=== PATIENT | female | born 1950 | race Caucasian/White ===

== ENCOUNTER → 2016-04-24 | Outpatient (CLI) | payer OTHER ==
--- NOTE | 2016-04-24 09:03 | MA ---
Screening Digital Mammogram Clinical Indications: Routine screening. Technique: Standard cephalocaudal and mediolateral oblique projections are obtained. This examinati on is processed by the [employer] computer aided detection system. Comparison: January 2015, January 2014, November 2012 and October 2011 Breast density: B; There are scattered fibroglandular densities. Findings: CAD was reviewed. No suspicious findings are identified. Impression: Negative mammogram. . BI-RADS 1. Recommendation: Routine screening is recommended in one year. [facility] will send a result letter to the patient. Negative mammography should not preclude additional workup of a clinically suspicious finding. The patient's information is entered into a reminder system with a target due date for her next mammo gram.
== END ==
LOC: FIMAGING 08:20
DX: Z12.31 Encounter for screening mammogram for malignant neoplasm of breast (principal)
CPT/HCPCS: G0202

== ENCOUNTER → 2016-07-08 | Outpatient (CLI) | payer OTHER | LOC: CIMAGING 16:53 | PROVIDERS: ATTEND Family Medicine | DX: R22.1 Localized swelling, mass and lump, neck (principal) | CPT/HCPCS: 76536-PO ==

== ENCOUNTER 2016-09-04 09:28 | Observation (INO) | payer MEDICAID, OTHER ==
[2016-09-04] MEDS ORDERED: LIDO/EPI 1% **Not for Epidural 20 ML MDV ONE (09:37)
[2016-09-04] MEDS ORDERED: LIDOCAINE 1% 2 ML INJ ONE (10:08)
[2016-09-04] MEDS ORDERED: MIDAZOLAM 2 MG/2 ML VIAL ONE (10:19)
[2016-09-04] MEDS ORDERED: fentaNYL 100 MCG/2 ML INJ ONE ×3 (10:25→13:21)
[2016-09-04] MEDS ORDERED: OXYCODONE/APAP 5/325 TAB PO PRN (10:25)
[2016-09-04] MEDS ORDERED: DEXAMETHASONE 10 MG/ML VIAL IV ONE (10:30)
[2016-09-04] MEDS ORDERED: D5W 1/2 NS W/ 20 KCl/L 1,000 ML IV SCH (10:30)
[2016-09-04] MEDS ORDERED: LR 1,000 ML IV ONE (10:31)
[2016-09-04] MEDS ORDERED: LIDOCAINE 1% 5 ML SDV ID PRN (10:31)
[2016-09-04 13:47] LABS: IONIZED CALCIUM 1.16 MMOL/L (1.12-1.30)
--- NOTE | 2016-09-04 13:56 | GOP ---
[f rep st] OPERATIVE REPORT DATE OF OPERATION: 09/04/2016 SURGEON: Mamadou Campbell MD SUPERVISOR BELT AND LINK ASSEMBLY: Epi Shankar. ANESTHESIA: General. PREOPERATIVE DIAGNOSIS: 1. Right thyroid mass suspicious for cancer. 2. Left level 5 neck mass, with fine-needle aspiration suggestive for cancer. POSTOPERATIVE DIAGNOSIS: 1. Right thyroid mass. 2. Left neck mass. Frozen section suggestive of benign tumor. PROCEDURE PERFORMED: 1. Right thyroid lobectomy. 2. Excision of deep left neck mass. 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 The recurrent laryngeal nerve was identified, as were the parathyroid glands on the right side. Nodules in the thyroid gland were deep and did not grossly extended to the thyroid capsule. There were no palpable or visibly abnormal lymph nodes. In the right central neck. SPECIMENS: Right thyroid lobe and left neck mass. ESTIMATED BLOOD LOSS: Less than 75 cc. INDICATIONS: The patient is a 66-year-old woman with a left level 5 neck mass, with a positive FNA for cancer, and a right thyroid nodule with FNA suspicious for cancer. Her preoperative PET scan showed positive likelihood of malignancy in the left neck mass alone and nowhere else within the areas studied. DESCRIPTION OF PROCEDURE: Patient was taken the OR and positively identified, placed on monitors, and general anesthesia was induced. The patient was then prepped and draped in normal sterile fashion. Incision was marked overlying the anterior neck skin crease, and infiltrated with 5 cc of 1% lidocaine with 1: 100,000 epinephrine. The skin was then sharply incised. Dissection carried down through the platysma. Superior and inferior subplatysmal flaps were then raised and secured with 2-0 silk suture. The sternocleidomastoid muscle was delineated. I was able to move the level 5 neck mass, which was seen to be just deep to or possibly within the substance of the very inferior portion of the sternocleidomastoid muscle. I dissected vertically to the sternocleidomastoid muscle fibers, and exposed the mass. I then followed out to its border superiorly and inferiorly. There was no evidence of it growing from off or within a nerve or any other structures. There was no significant blood supply to the mass itself. Small blood vessels were simply cauterized with bipolar cautery and divided. The mass was then delivered from the neck. Palpation did not reveal any other abnormalities in the neck. Frozen section was suggestive of a benign schwannoma. Attention was now turned to the right thyroid lobectomy/completion thyroidectomy. The strap muscles were divided in the midline and elevated off the right thyroid lobe. The superior vascular pedicle was isolated, clamped, cut, and ligated with 2-0 silk stick tie. The thyroid gland was then rotated medially. I identified the recurrent laryngeal nerve and the parathyroid glands. The middle thyroid vein was ligated and divided. The inferior vascular pedicle was ligated and divided in the same fashion. The thyroid gland was then rotated medially, following the capsule of the thyroid gland itself. Capellan ligament was then divided, tying off and cauterizing the vessels as needed in the region. The thyroid was rotated off the trachea and delivered from the wound (the patient had undergone left thyroid lobectomy 17 years ago). The wound was then irrigated with sterile saline solution. Hemostasis was assured. A 10-[place] round silicone drain was then placed through a separate stab incision and secured with a drain stitch. The wound was then closed with interrupted Vicryl to the strap muscles, Monocryl to the platysma and subcutaneous tissues, and a running Prolene suture through the skin, followed by pressure dressing. The case was then terminated. The anesthetic discontinued. The patient was taken to the postop care unit in good condition. She tolerated the procedure well. COMPLICATIONS: None. /[id number]/MODL MTDD
[2016-09-04] MEDS ORDERED: HYDROmorphONE/DILAUDID 1 MG/ML SYR ONE (13:57)
[2016-09-04] MEDS ORDERED: BACITRACIN ZINC 14.2 GM OINTTUBE TP ONE (15:32)
[2016-09-04] MEDS: ceFAZolin 2 GM/DEXTROSE 100 ML IV SCH ×2 (15:43→21:55)
--- NOTE | 2016-09-04 18:20 | SOAPPROG ---
SOAP Progress Note Assessment/Plan: Assessment:Pt doing well. no signs of low calcium. Plan: Obs overnight. Check Calcium in the morning. Likely discharge in the morning. 09/04/16 18:18 Subjective: Pt feeling good. Objective: Vital Signs Temp Pulse Resp BP Pulse Ox 36.8 C 92 18 157/95 H 99 09/04/16 17:30 09/04/16 17:30 09/04/16 17:30 09/04/16 17:30 09/04/16 17:30 09/03/16 09/04/16 09/05/16 05:59 05:59 05:59 Intake Total 1000 Output Total 15 Balance 985 Pt voice is normal. Neck flat. ICD10 Worksheet Patient Problems: Problems Problem Status Onset Thyroid adenoma Acute - ICD10 Problem Qualifiers (1) Thyroid adenoma
[2016-09-04 22:45] LABS: IONIZED CALCIUM 1.04 MMOL/L (1.12-1.30)
[2016-09-05] MEDS: ceFAZolin 2 GM/DEXTROSE 100 ML IV SCH (05:40)
[2016-09-05 05:46] LABS: IONIZED CALCIUM 1.11 MMOL/L (1.12-1.30)
[2016-09-05 07:53] VITALS: BP 136/75; PULSE 71; RESP 18; TEMP 97.9; O2SAT 98
--- NOTE | 2016-09-05 09:56 | SOAPPROG ---
SOAP Progress Note Assessment/Plan: pt s/p thyroidecotmy. Doing well. No hoarseness. No numbness. mild pain o:- dressing and drain removed. Dressing replaced. CA- 1.11 Plan:Pt s/p thyroidectomy. doing well. Take 2 tums tid on discharge. Discussed post op care. F/u next week. 09/05/16 09:55 Objective: Vital Signs Temp Pulse Resp BP Pulse Ox 36.6 C 71 18 136/75 H 98 09/05/16 07:52 09/05/16 07:52 09/05/16 07:52 09/05/16 07:52 09/05/16 07:52 09/04/16 09/05/16 09/06/16 05:59 05:59 05:59 Intake Total 1375 Output Total 585 Balance 790 ICD10 Worksheet Patient Problems: Problems Problem Status Onset Thyroid adenoma Acute
== END 2016-09-05 11:37 | disposition home or self-care (01) ==
LOC: F3E 09:28 → INTOOBSV 09:28 → PREOBSVTOIN 10:32 → F3E 14:38
PROVIDERS: ADMIT Otolaryngology; ATTEND Otolaryngology
PROC: 0KB30ZX Excision of Left Neck Muscle, Open Approach, Diagnostic (ICD-10-PCS; principal; 2016-09-04 10:30)
PROC: 0GTH0ZZ Resection of Right Thyroid Gland Lobe, Open Approach (ICD-10-PCS; principal; 2016-09-04 10:30)
DX: C49.0 Malignant neoplasm of connective and soft tissue of head, face and neck (principal); E04.2 Nontoxic multinodular goiter
CPT/HCPCS: 21554; 60220; J0690; J1170; J2250; J3010

== ENCOUNTER 2016-09-24 14:33 | Observation (INO) | payer OTHER ==
--- NOTE | 2016-09-24 09:31 | PDANEPAE ---
ANE Past Medical History - Cardiovascular History Hx Hypertension: No Hx Arrhythmias: No Hx Chest Pain: No Hx Coronary Artery / Peripheral Vascular Disease: No Hx CHF / Valvular Disease: No Hx Palpitations: No - Pulmonary History Hx COPD: No Hx Asthma/Reactive Airway Disease: No Hx Recent Upper Respiratory Infection: No Hx Oxygen in Use at Home: No - Neurologic History Hx Cerebrovascular Accident: No Hx Seizures: No Hx Dementia: No - Endocrine History Hx Diabetes: No - Renal History Hx Renal Disorders: No - Liver History Hx Hepatic Disorders: No - Neurological & Psychiatric Hx Hx Neurological and Psychiatric Disorders: No - Cancer History Hx Cancer: Yes - Congenital Disorder History Hx Congenital Disorders: No - GI History Hx Gastrointestinal Disorders: No - Chronic Pain History Chronic Pain: No ANE Review of Systems - Exercise capacity METS (RN): 4 METS ANE Patient History - Allergies Allergies/Adverse Reactions: morphine Allergy (Verified 09/23/16 17:46) Other-Enter Comments - Home Medications Home Medications: Levothyroxine 09/23/16 [Last Taken Unknown] - Smoking Hx Smoking Status: Former smoker ANE Labs/Vital Signs - Vital Signs Height: 163.83 cm Weight: 63.503 kg
[~2016-09-24 14:33] MED LIST: DEXAMETHASONE 10 MG/ML VIAL IVP ONE; LIDO/EPI 1% **Not for Epidural 20 ML MDV ONE; ceFAZolin 2 GM/DEXTROSE 100 ML IV ONE
[2016-09-24] MEDS ORDERED: LIDOCAINE 1% 2 ML INJ ONE (14:54)
[2016-09-24] MEDS ORDERED: LR 1,000 ML IV ONE (15:16)
[2016-09-24] MEDS ORDERED: LIDOCAINE 1% 2 ML INJ ID PRN (15:16)
--- NOTE | 2016-09-24 15:47 | PDANEPAE ---
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 here for L radical neck dissection ANE Past Medical History - Cardiovascular History Hx Hypertension: No Hx Arrhythmias: No Hx Chest Pain: No Hx Coronary Artery / Peripheral Vascular Disease: No Hx CHF / Valvular Disease: No Hx Palpitations: No - Pulmonary History Hx COPD: No Hx Asthma/Reactive Airway Disease: No Hx Recent Upper Respiratory Infection: No Hx Oxygen in Use at Home: No Hx Sleep Apnea: No Sleep Apnea Screening Result - Last Documented: Negative Pulmonary History Comment: quit 1993 - Neurologic History Hx Cerebrovascular Accident: No Hx Seizures: No Hx Dementia: No - Endocrine History Hx Diabetes: No Endocrine History Comment: on thyroid Rx - Renal History Hx Renal Disorders: No - Liver History Hx Hepatic Disorders: No - Neurological & Psychiatric Hx Hx Neurological and Psychiatric Disorders: No - Cancer History Hx Cancer: Yes Cancer History Comment: CA in neck mass-" on muscle" - Congenital Disorder History Hx Congenital Disorders: No - GI History Hx Gastrointestinal Disorders: No - Chronic Pain History Chronic Pain: No - Surgical History Prior Surgeries: Thyroidectomy, exc deep L neck mass 09-04-16. colon polyectomy . partial thyroidectomy 1999 ANE Review of Systems - Exercise capacity METS (RN): 4 METS ANE Patient History - Allergies Allergies/Adverse Reactions: morphine Allergy (Verified 09/23/16 17:46) Other-Enter Comments - Home Medications Home medications: home medication list seen and reviewed Home Medications: Levothyroxine 09/23/16 [Last Taken 09/24/16] - NPO status NPO Since - Liquids (Date): 09/24/16 NPO Since - Liquids (Time): 13:00 NPO Since - Solids (Date): 09/24/16 NPO Since - Solids (Time): 06:00 - Anes Hx Anes Hx: no prior problems - Smoking Hx Smoking Status: Former smoker - Alcohol Use Alcohol Use: Occasionally - Family Anes Hx Family Anes Hx: none ANE Labs/Vital Signs - Vital Signs Blood Pressure: 164/96 Heart Rate: 70 Respiratory Rate: 14 O2 Sat (%): 99 Height: 163.83 cm Weight: 63.503 kg ANE Physical Exam - Airway Neck exam: decreased ROM Mallampati Score: Class 2 Mouth exam: normal dental/mouth exam - Pulmonary Pulmonary: no respiratory distress, clear to auscultation - Cardiovascular Cardiovascular: regular rate and rhythym, no murmur, rub, or gallop - ASA Status ASA Status: III ANE Anesthesia Plan Anesthesia Plan: general endotracheal anesthesia Lines/Monitors: arterial line
[2016-09-24] MEDS ORDERED: MIDAZOLAM 2 MG/2 ML VIAL IVP ONE (15:50)
[2016-09-24] MEDS ORDERED: fentaNYL 100 MCG/2 ML INJ ONE (15:55)
[2016-09-24] MEDS ORDERED: PROPOFOL 200 MG/20 ML VIAL ONE ×2 (15:55)
[2016-09-24] MEDS ORDERED: ROCURONIUM 50 MG/5 ML VIAL ONE (15:58)
[2016-09-24] MEDS ORDERED: LIDOCAINE 2% 5 ML SDV ONE (15:58)
[2016-09-24] MEDS ORDERED: DEXAMETHASONE 10 MG/ML VIAL IVP ONE (16:00)
[2016-09-24] MEDS ORDERED: ceFAZolin 2 GM/DEXTROSE 100 ML IV ONE (16:00)
[2016-09-24] MEDS ORDERED: OXYCODONE/APAP 5/325 TAB PO PRN ×2 (16:12→18:38)
--- NOTE | 2016-09-24 16:13 | PDHPUP ---
History & Physical Update H&P update statement: This history and physical update is based on an assessment of the patient which was completed after admission or registration (within 24 hours), but prior to the surgery/procedure.
[2016-09-24] MEDS ORDERED: LIDO/EPI 1% **for epidural** 30 ML SDV ONE (16:16)
[2016-09-24] MEDS ORDERED: LIDO/EPI 1% **Not for Epidural 20 ML MDV ONE (16:17)
[2016-09-24] MEDS ORDERED: D5W 1/2 NS 1,000 ML IV SCH (16:30)
[2016-09-24] MEDS ORDERED: HYDROmorphONE/DILAUDID 2 MG/ML INJ ONE (17:03)
[2016-09-24] MEDS ORDERED: DEXAMETHASONE 4 MG/ML VIAL ONE (17:35)
[2016-09-24] MEDS ORDERED: ONDANSETRON 4 MG/2 ML VIAL ONE (17:36)
[2016-09-24] MEDS ORDERED: fentaNYL 100 MCG/2 ML INJ IVP PRN (18:38)
[2016-09-24] MEDS ORDERED: NALOXONE HCL 0.4 MG/ML INJ IVP PRN (18:38)
[2016-09-24] MEDS ORDERED: ACETAMINOPHEN 500 MG TAB PO PRN (18:38)
[2016-09-24] MEDS ORDERED: HYDROmorphONE/DILAUDID 1 MG/ML SYR IVP PRN (18:38)
[2016-09-24] MEDS ORDERED: ONDANSETRON 4 MG/2 ML VIAL IVP PRN (18:38)
[2016-09-24] MEDS ORDERED: PROMETHAZINE HCL 25 MG/ML INJ IVP PRN (18:38)
--- NOTE | 2016-09-24 19:27 | POSTANESTH ---
Post Anesthetic Evaluation Cardiovascular Status: Normal, Stable, Similar to Pre-Op Cond Respiratory Status: Normal, Stable, Similar to Pre-op Cond. Level of Consciousness/Mental Status: Can Participate in Eval, Alert and Oriented Pain Control: Adequate, Prn Tx Ordered Nausea/Vomiting Control: Adequate, Prn Tx Ordered Complications Possibly Related to Anesthesia: None Noted
--- NOTE | 2016-09-24 19:41 | POSTOPPROG ---
Post Op Note Date of Operation: 09/24/16 Surgeon: Mamadou Campbell Zinc Miner Blasting: Prasanth Shankar Anesthesiologist: Marcela Anesthesia: GET(General Endotracheal) Pre-op Diagnosis: left neck sarcoma Post-op Diagnosis: left neck sarcoma Procedure: Left neck modified radical neck dissection Inf/Abcess present in the surg proc area at time of surgery?: No Depth: Organ Space EBL: 50-100 Complications: none Drains: Adolph Mendoza (10 FR) Specimen(s): Left neck contents containing the SCM, internal jugular vein, external jugular vein, lymph node levels 2b,3,4,5
[2016-09-24] MEDS: ACETAMINOPHEN 500 MG TAB PO PRN (20:19)
[2016-09-24] MEDS: ceFAZolin 2 GM/DEXTROSE 100 ML IV SCH (23:24)
[2016-09-25] MEDS: ACETAMINOPHEN 500 MG TAB PO PRN (03:34)
[2016-09-25] MEDS: ceFAZolin 2 GM/DEXTROSE 100 ML IV SCH (05:22)
[2016-09-25] MEDS ORDERED: LEVOTHYROXINE 100 MCG TAB PO SCH (06:00)
--- NOTE | 2016-09-25 06:33 | GOP ---
[f rep st] OPERATIVE REPORT DATE OF OPERATION: 09/24/2016 SURGEON: Mamadou Campbell MD KEYING MACHINE OPERATOR: Rylan Shankar MD. ANESTHESIA: General. 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 PROCEDURE PERFORMED: Left modified radical neck dissection. FINDINGS: The accessary nerve, vagus nerve, and phrenic nerve were all identified and preserved. The sternocleidomastoid muscle and internal jugular vein and external jugular vein were all sacrificed. SPECIMENS: Left neck contents containing lymph node levels 2B, 3, 4, and 5. ESTIMATED BLOOD LOSS: 100 mL. 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 She presents for modified radical neck dissection in hopes of improving her chance of cure. DESCRIPTION OF PROCEDURE: Patient was taken to the operating room and positively identified, placed on monitors, and general endotracheal anesthesia was induced. The table was then turned. The patient was positioned with a shoulder roll. She was then prepped and draped in the normal fashion. Dr. Shankar was scrubbed in and actively involved in the surgery throughout the entire 2 hours of the operation. His assistance was critical for the safe and expeditious completion of the case. An incision was marked out along the neck including her recent incision line from her completion right thyroidectomy and excisional biopsy of the left neck mass. This was extended laterally following a skin crease in the neck. This was infiltrated with 8 cc of 1% lidocaine with 1:100,000 epinephrine. The skin was then sharply incised. Dissection was then carried down to the platysma. Superior and inferior subplatysmal flaps were then raised and secured with 2-0 silk suture. The posterior border of the sternocleidomastoid muscle was identified. Dissection was then carried down through the fatty tissue and the accessary nerve was identified. I then dissected down along the accessary nerve carefully until I was able to locate where it entered the anterior aspect of the trapezius muscle. Dissection was then swept up superiorly, following the nerve through the sternocleidomastoid muscle, dividing the muscle lateral to the nerve and then carefully dividing it inferior to the nerve to sweeping inferiorly. The external and internal jugular veins were clamped, cut and ligated with 2-0 silk stick ties. Dissection was then carried anteriorly following along the inferior aspect of the submandibular gland. Divided the submandibular fascia to try and minimize any potential risk to the marginal mandibular branch of the facial nerve. Of note, we did use the [place] nerve stimulator to help us identify both the accessary nerve and the marginal branch of the facial nerve. At this point, the dissection was swept down along the anterior border just lateral to the larynx. The carotid artery was identified, dissection was carried along the anterior aspect of the carotid artery. The vagus nerve was identified and preserved. The dissection was then swept down to the level of the sternal notch and clavicle. At this point, the inferior and border of the dissection was delineated. The internal jugular vein was crossclamped and ligated with a 2 -0 silk stick tie. As the tissue was swept laterally, we started using hemoclips in this area on any small vessels and the soft tissue to decrease inadvertent potential injury to the thoracic duct. The thyrocervical trunk was identified. The thyroid branch was ligated with 3-0 silk. The transverse cervical artery was preserved. The lymphatic tissue swept was swept back following the deep cervical fascia. I could identify the phrenic nerve deep to the fascia on the anterior border of the scalene musculature as well as the brachial plexus. As the lymphatic tissue was swept back posteriorly, taking out level 5, the cervical rootlets were divided, leaving ample distance between them and the phrenic nerve to decrease potential inadvertent injury to the phrenic nerve. The final fascial attachments were divided along the anterior border of the trapezius muscle, again, with care being taken to avoid inadvertent injury to the accessary nerve. The specimen was then oriented for the pathologist and sent en bloc with a suture at the superior-inferior border. The wound was then irrigated with sterile saline solution and hemostasis was assured. A 10-[place] flat WHIT drain was placed through a separate stab incision and secured with a drain stitch. The wound was then closed with interrupted 3-0 Vicryl, 4-0 Monocryl and 4-0 Prolene suture. A dressing was placed and the case was terminated, and the patient was taken to the postop care unit in good condition having tolerated the procedure well. COMPLICATIONS: None. DRAINS: A 10-[place] flat WHIT drain was placed at the end of the procedure. /[id number]/MODL MTDD
[2016-09-25 08:36] VITALS: BP 144/85; PULSE 72; RESP 16; TEMP 98.6; O2SAT 95
--- NOTE | 2016-09-25 10:00 | SOAPPROG ---
SOAP Progress Note Assessment/Plan: Assessment: Pt doing remarkably well. She rates her pain as a 2/10. She may be discharged with the WHIT drain after drain teaching by the RN. Plan: D/C home Followup set for tomorrow with me at 4:45 She does not require any pain meds other than tylenol. She will take keflex till the drain is removed. 09/25/16 09:56 Subjective: Pt feels good, gaurang PO, and wants to go home. Objective: Vital Signs Temp Pulse Resp BP Pulse Ox 37.0 C 72 16 144/85 H 95 09/25/16 08:00 09/25/16 08:00 09/25/16 08:00 09/25/16 08:00 09/25/16 08:00 09/24/16 09/25/16 09/26/16 05:59 05:59 05:59 Intake Total 500 Output Total 380 Balance 120 Neck flat, drainage is sero-sanguinous. Voice clear. no sign of infection ICD10 Worksheet Patient Problems: Problems Problem Status Onset Sarcoma Acute Thyroid adenoma Acute
== END 2016-09-25 10:53 | disposition home or self-care (01) ==
LOC: F3E 14:33
PROVIDERS: ADMIT Otolaryngology; ATTEND Otolaryngology
PROC: 0KB30ZZ Excision of Left Neck Muscle, Open Approach (ICD-10-PCS; principal; 2016-09-24 16:00)
DX: C76.0 Malignant neoplasm of head, face and neck (principal)
CPT/HCPCS: 21557; J0690; J1100; J1170; J2250; J2405; J2704; J3010

== ENCOUNTER → 2017-06-10 | Outpatient (CLI) | payer OTHER, MEDICARE | LOC: FIMAGING 08:10 | PROVIDERS: ATTEND Family Medicine | DX: Z12.31 Encounter for screening mammogram for malignant neoplasm of breast (principal) ==

== ENCOUNTER → 2018-07-21 | Outpatient (CLI) | payer OTHER, MEDICARE | LOC: FIMAGING 10:04 | PROVIDERS: ATTEND Family Medicine | DX: Z12.31 Encounter for screening mammogram for malignant neoplasm of breast (principal) ==